=== PATIENT | male | born 1990 | race Caucasian/White ===

== ENCOUNTER 2018-07-02 17:49 | Emergency (ER) | payer OTHER ==
[~2018-07-02] VITALS: Ht 180.3 cm; Wt 95.7 kg
[2018-07-02 18:05] VITALS: Ht 180.3 cm; Wt 95.7 kg
[2018-07-02 19:06] LABS: BASOPHIL % 0.4 % (0-2); PLATELET COUNT 192 x10^3mcL (130-400)
[2018-07-02 19:07] LABS: RED CELL DISTRIBUTION WIDTH 14.6 % (11.5-14.5)
[2018-07-02 19:22] LABS: CALCIUM 8.5 mg/dL (8.5-10.1); CARBON DIOXIDE 30.8 mmol/L (21-32); CHLORIDE SERUM 103 mmol/L (98-107); CREATININE SERUM 1.2 mg/dL (0.7-1.3); GFR1 > 60 mL/min; GLUCOSE SERUM 96 mg/dL (74-106); POTASSIUM SERUM 3.7 mmol/L (3.5-5.1); SODIUM SERUM 141 mmol/L (136-145)
[2018-07-02 19:28] LABS: ALBUMIN 4.3 g/dL (3.4-5.0); ALKALINE PHOSPHATASE 69 U/L (46-116); ALT/SGPT 33 U/L (16-63); AST/SGOT 23 U/L (15-37); BILIRUBIN TOTAL 0.7 mg/dL (0.20-1.00); TOTAL PROTEIN, SERUM 7.7 g/dL (6.4-8.2)
[2018-07-02 19:48] LABS: AMPHETAMINE QUAL UR NONE DETECTED (See below)
[2018-07-02 21:00] VITALS: BP 127/63
== END 2018-07-02 21:01 | disposition home or self-care (01) ==
LOC: ED 17:49
PROVIDERS: Emergency Medicine
DX: F41.9 Anxiety disorder, unspecified (principal); Z91.018 Allergy to other foods
CPT/HCPCS: 36415; G0480